=== PATIENT | male | born 1960 | race Caucasian/White ===

== ENCOUNTER 2018-02-22 06:21 | Day surgery (SDC) | payer BC ==
[~2018-02-22 06:21] MED LIST: Acetaminophen TAB* 325 MG PO PRN; Buffered Lidocaine 0.9% SYRIN* 5 ML/SYR SYRINGE INTRADERM ONE
[2018-02-22] MEDS ORDERED: Trypan Blue 0.06% SOL* 0.5 ML BTL ONE (07:22)
[2018-02-22] MEDS ORDERED: Midazolam* 1 MG/ML 5 ML VIAL (5 MG) ONE (09:08)
[2018-02-22] MEDS ORDERED: fentaNYL* 50 MCG/ML 2 ML VIAL (100 MCG VIAL) ONE (09:08)
[2018-02-22] MEDS ORDERED: Midazolam* 1 MG/ML 2 ML VIAL (2 MG) ONE (09:51)
[2018-02-22] MEDS ORDERED: Propofol* 10 MG/ML 20 ML BTL IV PUSH ONE (09:59)
[2018-02-22 10:42] VITALS: BP 123/89
[2018-02-22] MEDS ORDERED: Lidocaine 1%* 5 ML VIAL ONE (12:51)
[2018-02-22] MEDS ORDERED: Ketorolac 0.5% OPHTH (NF) 0.5 % 5 ML BTL ONE (12:51)
[2018-02-22] MEDS ORDERED: acetaZOLAMIDE TAB* 250 MG ONE (12:51)
[2018-02-22] MEDS ORDERED: Tetracaine 0.5% OPTH.SOL 4 ML* 1 DROP BTL ONE (12:51)
[2018-02-22] MEDS ORDERED: Tropicamide 1% OPTH.SOL* BTL ONE (12:51)
[2018-02-22] MEDS ORDERED: Povidone Iodine 5% OPTH* 30 ML BTL ONE (12:51)
[2018-02-22] MEDS ORDERED: Cyclopentolate 1% OPTH.SOL* 2 ML BTL ONE (12:51)
[2018-02-22] MEDS ORDERED: Phenylephrine 2.5% OPTH.SOL* 2 ML BTL ONE (12:51)
[2018-02-22] MEDS ORDERED: Neomycin/Polymy/Dex OPHTH.OIN* 3.5 GM ONE (12:51)
--- NOTE | 2018-02-22 15:52 | OP ---
DATE OF OPERATION: 02/22/18 - [facility] DATE OF : 62 SURGEON: Gustabo Carson MD ANESTHESIA: Monitored anesthesia care. PRE-OP DIAGNOSIS: Mature cataract, right eye. POST-OP DIAGNOSIS: Mature cataract, right eye with floppy iris syndrome. OPERATIVE PROCEDURE: Extracapsular cataract extraction of the right eye with intraocular lens implant. IMPLANTS: SN60WF 21.5 Diopter lens to the right eye. COMPLICATIONS: None. DESCRIPTION OF PROCEDURE: The patient was given phenylephrine 2.5% and cyclopentolate 1% eye drops to the operative eye in the preoperative area. The patient was taken to the operating room where a time-out was taken to identify the correct patient, site, and side of surgery. The patient's right eye was prepped and draped in the usual sterile fashion with 5% Betadine. A second time -out was taken to verify the correct patient, side, and site of surgery and correct lens implant. A lid speculum was placed to the right eye. A 1 mm paracentesis blade was used to make a clear corneal incision in the superior temporal position. Preservative-free 1% lidocaine was injected into the anterior chamber. Vision blue was then injected into the anterior chamber to stay in the anterior capsule due to the mature cataracts. Healon was then injected in the anterior chamber. A 2.75 mm keratome blade was used to make a triplanar incision at the inferior temporal position. A Malyugin ring was inserted due to poor pupillary dilation and evidence of floppy iris syndrome. A cystotome initiated a capsulorrhexis, which was completed with MST forceps in a continuous and curvilinear manner. Hydrodissection of the lens was performed with BSS on a cannula. The lens could be spun in the capsular bag. The phacoemulsification handpiece was used with a [id number] technique to remove the nucleus with 34.73 CDE. The I/A handpiece then removed the residual cortical lens material. DisCoVisc was injected to inflate the capsular bag. The planned SN60WF 21.5 Diopter lens was then injected into the capsular bag. The Malyugin ring was then removed from the anterior chamber using a [place] technique. The residual DisCoVisc was removed from the eye with the I/A handpiece. The corneal incisions were hydrated and no leaks occurred at physiologic pressure around 20 mmHg per palpation. The lid speculum was removed and drapes were removed. Maxitrol ointment was placed to the surface of the operative eye. An adhesive patch and shield was then placed on the operative eye. The patient was taken to the postoperative area in stable condition. [id number]/[facility] #: [id number] MTDD
== END 2018-02-22 10:50 | disposition home or self-care (01) ==
LOC: OREAST 06:21
PROVIDERS: ATTEND Student in an Organized Health Care Education/Training Program
DX: H25.11 Age-related nuclear cataract, right eye (principal); H21.81 Floppy iris syndrome; Z72.0 Tobacco use; R03.0 Elevated blood-pressure reading, without diagnosis of hypertension
CPT/HCPCS: A9270-GY; J2250; J2704; J3010; V2632

== ENCOUNTER 2018-11-05 21:36 | Emergency (ER) | payer BC ==
[2018-11-05] MEDS ORDERED: NS 0.9% 1000 ML** 1,000 ML IV ONE (22:18)
[2018-11-05] MEDS ORDERED: Morphine 4 MG/ML VIAL (1 ml) 4 MG/ML VIAL IV ONE (22:18)
[2018-11-05] MEDS ORDERED: Ondansetron INJ* 2 MG/ML VIAL IV ONE (22:18)
[2018-11-05 22:37] LABS: ABS Basophils 0.1 10^3/ul (0-0.2); ABS Eosinophils 0.2 10^3/ul (0-0.6); ABS Lymphocytes 1.5 10^3/ul (1.0-4.8); ABS Monocytes 0.8 10^3/ul (0-0.8); Hematocrit 45 % (42-52); Hemoglobin 15.3 g/dL (14.0-18.0); Lymphocyte % 14.1 %; Mean Corpuscular HGB Conc 34 g/dL (31-36); Mean Corpuscular Hemoglobin 34 pg (27-31); Mean Corpuscular Volume 100 fL (80-94); Platelet Count 208 10^3/uL (150-450); Red Blood Count 4.55 10^6 /uL (4.18-5.48); Red Cell Distribution Width 13 % (10.5-15); White Blood Count 10.6 10^3/uL (3.5-10.8)
--- NOTE | 2018-11-05 22:39 | ED ---
GI/ HPI - HPI Summary HPI Summary: 58 year old male presents with flank pain today. He states pain is starting to wrap around his abdomen. He states he's been having nausea and vomiting. Denies any diarrhea or constipation. he did vomit a couple hours ago and has been nauseous. No dysuria or hematuria. Never had this pain before. No previous abd surgeries. Has no medical conditions. He denies any chest pain shortness breath. He denies any pain into his legs. No numbness and tingling. No loss of bowel or bladder. No saddle anesthesias. No fevers. took some ibuprofen and helped with the pain. - History of Current Complaint Chief Complaint: EDFlankPain Time Seen by Provider: 11/05/18 22:08 Stated Complaint: PAIN IN RIGHT SIDE/VOMITING PER PT Pain Intensity: 7 - Allergy/Home Medications Allergies/Adverse Reactions: Allergies Allergy/AdvReac Type Severity Reaction Status Date / Time No Known Allergies Allergy Verified 05/03/18 09:53 PMH/Surg Hx/FS Hx/Imm Hx Endocrine/Hematology History: Denies: Hx Anticoagulant Therapy Cardiovascular History: Denies: Hx Myocardial Infarction Musculoskeletal History: Reports: Hx Tendonitis - 2015 RT [place], [place] NOW Sensory History: Reports: Hx Cataracts - RT EYE Opthamlomology History: Reports: Hx Cataracts - RT EYE - Surgical History Surgery Procedure, Year, and Place: 2010 ALL TEETH EXTRACTED IN DENTIST OFFICE Hx Anesthesia Reactions: No Infectious Disease History: No Infectious Disease History: Denies: Traveled Outside the [place] in Last 30 Days - Family History Known Family History: Positive: Non-Contributory - Social History Alcohol Use: Weekly Alcohol Amount: 24 BEERS /WEEK Substance Use Type: Reports: None Smoking Status (MU): Heavy Every Day Tobacco Smoker Type: Cigarettes Amount Used/How Often: 2 PPD 42 YRS Length of Time of Smoking/Using Tobacco: 42 YRS Have You Smoked in the Last Year: Yes Review of Systems Negative: Fever Negative: Chest Pain Negative: Shortness Of Breath Positive: Vomiting, Nausea. Negative: Abdominal Pain, Diarrhea Positive: flank pain. Negative: dysuria All Other Systems Reviewed And Are Negative: Yes Physical Exam Triage Information Reviewed: Yes Vital Signs On Initial Exam: Initial Vitals Temp Pulse Resp BP Pulse Ox 97.8 F 73 20 184/114 98 11/05/18 21:39 11/05/18 21:39 11/05/18 21:39 11/05/18 21:39 11/05/18 21:39 Vital Signs Reviewed: Yes Appearance: Positive: Well-Appearing Skin: Positive: Warm, Dry Head/Face: Positive: Normal Head/Face Inspection Eyes: Positive: Normal, Conjunctiva Clear ENT: Positive: Pharynx normal Respiratory/Lung Sounds: Positive: Clear to Auscultation, Breath Sounds Present Cardiovascular: Positive: Normal, RRR Abdomen Description: Positive: Nontender, Soft, CVA Tenderness (R) Bowel Sounds: Positive: Present Musculoskeletal: Positive: Normal Neurological: Positive: Normal Psychiatric: Positive: Normal Diagnostics - Vital Signs Vital Signs Temp Pulse Resp BP Pulse Ox 11/05/18 22:27 74 96 11/05/18 22:26 74 188/115 95 11/05/18 21:39 97.8 F 73 20 184/114 98 - Laboratory Lab Results: Lab Results 11/05/18 Range/Units 22:30 WBC 10.6 (3.5-10.8) 10^3/uL RBC 4.55 (4.18-5.48) 10^6 /uL Hgb 15.3 (14.0-18.0) g/dL Hct 45 (42-52) % MCV 100 H (80-94) fL MCH 34 H (27-31) pg MCHC 34 (31-36) g/dL RDW 13 (10.5-15) % Plt Count 208 (150-450) 10^3/uL MPV 8.0 (7.4-10.4) fL Neut % (Auto) 75.7 % Lymph % (Auto) 14.1 % [place] % (Auto) 7.7 % Eos % (Auto) 2.0 % Baso % (Auto) 0.5 % Absolute Neuts (auto) 8.0 H (1.5-7.7) 10^3/ul Absolute Lymphs (auto) 1.5 (1.0-4.8) 10^3/ul Absolute Monos (auto) 0.8 (0-0.8) 10^3/ul Absolute Eos (auto) 0.2 (0-0.6) 10^3/ul Absolute Basos (auto) 0.1 (0-0.2) 10^3/ul Absolute Nucleated RBC 0.0 10^3/ul Nucleated RBC % 0.0 Result Diagrams: 11/05/18 22:30 11/05/18 22:30 Lab Statement: Any lab studies that have been ordered have been reviewed, and results considered in the medical decision making process. Re-Evaluation - Re-Evaluation First Eval Re-Evaluation Time: 23:47 Change: Improved Comment: no pain Second Eval Re-Evaluation Time: 00:51 Change: Improved Comment: still no pain GIGU Course/Dx - Course Course Of Treatment: 58 year old male presents with flank pain today. He states pain is starting to wrap around his abdomen. He states he's been having nausea and vomiting. Denies any diarrhea or constipation. he did vomit a couple hours ago and has been nauseous. No dysuria or hematuria. Never had this pain before. No previous abd surgeries. Has no medical conditions. He denies any chest pain shortness breath. He denies any pain into his legs. No numbness and tingling. No loss of bowel or bladder. No saddle anesthesias. No fevers. took some ibuprofen and helped with the pain. On exam tenderness right flank. Nontender abdomen. wbc normal. crp normal. urine shows potential uti but likely a contaminant but will treat with augmentin. has no fever here. CT shows 3mm stone. patient has no pain. will discharge with flomax and pain medication. gave referral to urology. told if develop fever to return. patient understand and agrees with plan. - Diagnoses Differential Diagnoses - Male: Ureteral Calculi, Urinary Tract Infection, Other - back pain Provider Diagnoses: Ureteral stone, UTI (urinary tract infection) Discharge - Sign-Out/Discharge Documenting (check all that apply): Patient Departure Patient Received Moderate/Deep Sedation with Procedure: No - Discharge Plan Condition: Good Disposition: HOME Prescriptions: Amoxicillin/Clavulanate TAB* [Augmentin TAB 500 mg*] 500 mg PO BID #9 tab Ondansetron TAB* [Zofran 4 MG Tab*] 4 mg PO Q6H PRN #16 tab PRN Reason: Nausea oxyCODONE/Acetamin 5/325 MG* [Percocet 5/325 TAB*] 1 tab PO Q6H PRN #16 tab MDD 4 PRN Reason: Pain Tamsulosin CAP* [Flomax CAP*] 0.4 mg PO DAILY #7 cap Patient Education Materials: Ureteral Stones (ED) Referrals: Regan Sin MD [Primary Care Provider] - Manoj Hawk MD [Medical Doctor] - Additional Instructions: take augmentin twice a day for 5 days Take ibuprofen every 6 hours and percocet as needed every 6 hours Take Zofran every 6 hours for nausea as needed Take Flomax daily starting tomorrow, first dose given in ED until stone expelled , make sure stand up slowly Follow up with urology, call office for appointment Strain urine until collect stone Return to ED if unable to manage pain at home, develop fever, or any new or worsening symptoms - Billing Disposition and Condition Condition: GOOD Disposition: Home
[2018-11-05 22:52] LABS: Albumin 4.4 g/dL (3.2-5.2); Albumin/Globulin Ratio 1.7 (1-3); BUN/Creatinine Ratio 14.8 (8-20); C Reactive Protein 2.91 mg/L (<8.01); Calcium 9.8 mg/dL (8.6-10.3); EGFR African American 79.3 (>60); EGFR Non-African American 65.5 (>60); Globulin 2.6 g/dL (2-4); Potassium 3.9 mmol/L (3.5-5.0); Total Bilirubin 0.5 mg/dL (0.2-1.0)
[2018-11-06] MEDS ORDERED: Tamsulosin CAP* 0.4 MG PO ONE (00:11)
[2018-11-06 00:40] LABS: Urine Appearance Cloudy; Urine Bacteria Absent (Absent); Urine Bilirubin Negative (Negative); Urine Blood 3+ (Negative); Urine Color Yellow; Urine Glucose Negative (Negative); Urine Ketones Negative (Negative); Urine Nitrite Negative (Negative); Urine Protein Negative (Negative); Urine Red Blood Cell 3+(>10/hpf) (Absent); Urine Specific Gravity 1.023 (1.010-1.030); Urine Squamous Epithelial Cell Present (Absent); Urine Urobilinogen Negative (Negative); Urine White Blood Cell 1+(6-10/hpf) (Absent)
[2018-11-06] MEDS ORDERED: Amoxicillin/Clavulanate TAB* 500 MG PO ONE (00:42)
[2018-11-06] MEDS ORDERED: O ndansetron ODT 4MG 5TAB PRPK 4 MG PAK PO ONE (00:51)
[2018-11-06 01:04] VITALS: BP 139/79
== END 2018-11-06 00:51 | disposition home or self-care (01) ==
LOC: ED 21:36
DX: N39.0 Urinary tract infection, site not specified (principal); N20.1 Calculus of ureter; N20.0 Calculus of kidney; F17.210 Nicotine dependence, cigarettes, uncomplicated
CPT/HCPCS: 36415; 74176; 80053; 81003; 81015; 83605; 83690; 85025; 86140; 87086; 96361; 96374; 96375; 99283; J2270; J2405

== ENCOUNTER 2022-07-02 16:31 | Inpatient (IN) ==
[2022-07-02] MEDS ORDERED: Iodixanol (CONTRAST) 320 MG/ML 100 ML SDV IV ONE (17:32)
[2022-07-02 17:43] LABS: ABS Basophils 0.1 10^3/ul (0-0.2); ABS Lymphocytes 0.4 10^3/ul (1.0-4.8); ABS Monocytes 0.8 10^3/ul (0-0.8); ABS Neutrophils 2.8 10^3/ul (1.5-7.7); Eosinophil % 0.3 %; Hematocrit 35 % (42-52); Hemoglobin 11.4 g/dL (14.0-18.0); Lymphocyte % 10.5 %; Mean Corpuscular HGB Conc 33 g/dL (31-36); Mean Corpuscular Hemoglobin 33 pg (27-31); Mean Corpuscular Volume 99 fL (80-94); Mean Platelet Volume 7.2 fL (7.4-10.4); Platelet Count 199 10^3/uL (150-450); Red Blood Count 3.48 10^6 /uL (4.18-5.48); Red Cell Distribution Width 14 % (10-15); White Blood Count 4.2 10^3/uL (3.5-10.8)
[2022-07-02] MEDS ORDERED: fentaNYL 100 mcg/2 ml 50 MCG/ML VIAL IV SLOW PU ONE (17:58)
[2022-07-02 18:05] LABS: INR 1.19 (0.88-1.18)
[2022-07-02] MEDS ORDERED: methylPREDNISolone SOD SUCC 125 mg 2 ML VIAL IV ONE (18:33)
[2022-07-02] MEDS ORDERED: NS 0.9% 1000 ml BAG 1,000 ML IV ONE (18:33)
[2022-07-02] MEDS ORDERED: cefTRIAXone 1 gm/50 mL D5W 1 GM/50 ML BAG IV ONE (18:35)
[2022-07-02] MEDS ORDERED: Azithromycin 500 mg/250 ml NS 500 MG/250 ML BAG IVPB ONE (18:35)
[2022-07-02] MEDS ORDERED: Levalbuterol 1.25MG/0.5ML NEB.SOL INH ONE (18:35)
[2022-07-02 18:51] LABS: Albumin 3.5 g/dL (3.2-5.2); Albumin/Globulin Ratio 1.3 (1-3); Calcium 8.4 mg/dL (8.6-10.3); Globulin 2.7 g/dL (2-4); Magnesium 1.6 mg/dL (1.9-2.7); Potassium 4.3 mmol/L (3.5-5.0); Total Bilirubin 0.6 mg/dL (0.2-1.0); Total Protein 6.2 g/dL (6.4-8.9); eGFR CKD-EPI 106.2 (>60)
[2022-07-02] MEDS ORDERED: Magnesium Sulfate 2 gm BAG 2 GM/50 ML BAG IVPB ONE (19:12)
[2022-07-02 19:24] LABS: High Sensitivity Troponin 1 Hr 6 pg/mL (<20)
[2022-07-02 19:43] LABS: C Reactive Protein 222.65 mg/L (<8.01)
[2022-07-02 19:45] LABS: Venous Bicarbonate HCO3 23.9 mmol/L (24-28)
[2022-07-02] MEDS ORDERED: Magnesium Sulf 4 GM/100 ML IV 4,000 MG/100 ML BAG IVPB ONE (20:00)
[2022-07-02] MEDS ORDERED: CALCIUM GLUCONATE 1GM/50ML NS 1 GM/50 ML BAG IV ONE (20:01)
[2022-07-02] MEDS ORDERED: Levalbuterol 1.25MG/0.5ML NEB.SOL INH PRN (20:07)
[2022-07-02] MEDS: Acetaminophen IV 1 GM/100ML 1,000 MG/100 ML BAG IV SCH (20:51)
[2022-07-02] MEDS ORDERED: Ondansetron 4 mg VIAL 2 MG/ML 2 ml VIAL IV PRN ×2 (20:56→21:35)
[2022-07-02] MEDS ORDERED: Varenicline 1 mg TAB (NF) PO SCH (21:00)
[2022-07-02 21:30] LABS: Urine Appearance Clear; Urine Bilirubin Negative (Negative); Urine Blood 2+ (Negative); Urine Color Yellow; Urine Glucose Negative (Negative); Urine Ketones Trace (Negative); Urine Nitrite Negative (Negative); Urine Protein 1+(30 mg/dL) (Negative); Urine Urobilinogen Negative (Negative)
[2022-07-02 21:45] LABS: Urine Bacteria Absent (Absent); Urine Red Blood Cell Trace(0-2/hpf) (Absent); Urine Squamous Epithelial Cell Present (Absent); Urine White Blood Cell Trace(0-5/hpf) (Absent)
[2022-07-02] MEDS: metroNIDAZOLE IV 500 MG/100ML 500 MG/100 ML BAG IVPB SCH (21:45)
[2022-07-02] MEDS ORDERED: NS 0.9% 1000 ml BAG 1,000 ML IV SCH (21:45)
[2022-07-02] MEDS: Albuterol/Ipratropium NEB.SOL (2.5/0.5 MG) 3 ML NEB.SOLN INH SCH (22:33)
[2022-07-02] MEDS: methylPREDNISolone SOD SUCC 40 mg/ml 1 ml VIAL IV SCH (22:59)
[2022-07-02] MEDS: Enoxaparin 40 MG/0.4 ML SYR SUBCUT SCH (23:00)
[2022-07-03] MEDS: Acetaminophen IV 1 GM/100ML 1,000 MG/100 ML BAG IV SCH ×4 (02:20→20:51)
[2022-07-03] MEDS: metroNIDAZOLE IV 500 MG/100ML 500 MG/100 ML BAG IVPB SCH (03:57)
[2022-07-03 04:16] LABS: ABS Lymphocytes 0.3 10^3/ul (1.0-4.8); ABS Monocytes 0.2 10^3/ul (0-0.8); ABS Neutrophils 2.5 10^3/ul (1.5-7.7); Eosinophil % 0.1 %; Hematocrit 32 % (42-52); Hemoglobin 10.9 g/dL (14.0-18.0); Lymphocyte % 9.4 %; Mean Corpuscular HGB Conc 34 g/dL (31-36); Mean Corpuscular Hemoglobin 34 pg (27-31); Mean Corpuscular Volume 99 fL (80-94); Mean Platelet Volume 7.2 fL (7.4-10.4); Platelet Count 201 10^3/uL (150-450); Red Blood Count 3.23 10^6 /uL (4.18-5.48); Red Cell Distribution Width 15 % (10-15); White Blood Count 2.9 10^3/uL (3.5-10.8)
[2022-07-03 04:49] LABS: Calcium 8.4 mg/dL (8.6-10.3); Magnesium 2.4 mg/dL (1.9-2.7); Potassium 4.5 mmol/L (3.5-5.0); eGFR CKD-EPI 107.7 (>60)
[2022-07-03] MEDS: methylPREDNISolone SOD SUCC 40 mg/ml 1 ml VIAL IV SCH ×3 (05:13→21:30)
[2022-07-03] MEDS: Albuterol/Ipratropium NEB.SOL (2.5/0.5 MG) 3 ML NEB.SOLN INH SCH (07:06)
[2022-07-03] MEDS ORDERED: Albuterol/Ipratropium NEB.SOL (2.5/0.5 MG) 3 ML NEB.SOLN INH PRN (07:16)
[2022-07-03] MEDS: Albuterol HFA INHALER 8 gm MDI INH SCH ×3 (07:23→19:43)
[2022-07-03] MEDS ORDERED: Piperacillin/Tazobac ADVAN 3.375 GM in NS 0.9% 100 ml BAG 100 ML IV ONE (18:30)
[2022-07-03] MEDS ORDERED: Zosyn per Pharmacy NOTE FOLLOW UP SCH (20:00)
[2022-07-03] MEDS ORDERED: Azithromycin 500 mg/250 ml NS 500 MG/250 ML BAG IVPB SCH (21:00)
[2022-07-03] MEDS: Enoxaparin 40 MG/0.4 ML SYR SUBCUT SCH (21:30)
[2022-07-03] MEDS: ZOSYN 3.375 GM Q8H per EXTENDED INFUSION IV SCH (23:03)
[2022-07-04] MEDS: Albuterol HFA INHALER 8 gm MDI INH SCH ×3 (01:58→12:03)
[2022-07-04] MEDS: Acetaminophen IV 1 GM/100ML 1,000 MG/100 ML BAG IV SCH ×2 (02:42→08:24)
[2022-07-04] MEDS: ZOSYN 3.375 GM Q8H per EXTENDED INFUSION IV SCH (06:08)
[2022-07-04] MEDS: methylPREDNISolone SOD SUCC 40 mg/ml 1 ml VIAL IV SCH ×2 (06:08→12:25)
[2022-07-04 06:34] LABS: ABS Lymphocytes 0.7 10^3/ul (1.0-4.8); ABS Monocytes 0.6 10^3/ul (0-0.8); ABS Neutrophils 3.7 10^3/ul (1.5-7.7); Eosinophil % 0.1 %; Hematocrit 32 % (42-52); Hemoglobin 11.2 g/dL (14.0-18.0); Lymphocyte % 13.2 %; Mean Corpuscular HGB Conc 35 g/dL (31-36); Mean Corpuscular Hemoglobin 35 pg (27-31); Mean Corpuscular Volume 101 fL (80-94); Mean Platelet Volume 7.4 fL (7.4-10.4); Nucleated Red Blood Cells % 0.1; Platelet Count 277 10^3/uL (150-450); Red Blood Count 3.22 10^6 /uL (4.18-5.48); Red Cell Distribution Width 15 % (10-15); White Blood Count 4.9 10^3/uL (3.5-10.8)
[2022-07-04 07:22] LABS: Calcium 8.5 mg/dL (8.6-10.3); Potassium 4.6 mmol/L (3.5-5.0); eGFR CKD-EPI 106.7 (>60)
[2022-07-04 11:36] VITALS: BP 165/100
== END 2022-07-04 13:55 | disposition home or self-care (01) | DRG 139 ==
LOC: ED 16:31 → SUATTDRO 21:32 → EDHOLD 21:32 → MED 23:05
PROVIDERS: ADMIT Internal Medicine; ATTEND Internal Medicine

== ENCOUNTER 2022-07-21 19:56 | Inpatient (IN) ==
[2022-07-21 21:03] LABS: ABS Monocytes 0.1 10^3/ul (0-0.8); ABS Neutrophils 6.2 10^3/ul (1.5-7.7); Eosinophil % 0.3 %; Hematocrit 35 % (42-52); Hemoglobin 11.6 g/dL (14.0-18.0); Lymphocyte % 13.7 %; Mean Corpuscular HGB Conc 33 g/dL (31-36); Mean Corpuscular Hemoglobin 33 pg (27-31); Mean Corpuscular Volume 100 fL (80-94); Platelet Count 167 10^3/uL (150-450); Red Blood Count 3.54 10^6 /uL (4.18-5.48); Red Cell Distribution Width 16 % (10-15); White Blood Count 7.3 10^3/uL (3.5-10.8)
[2022-07-21 21:12] LABS: INR 0.95 (0.88-1.18)
[2022-07-21 21:33] LABS: Albumin 3.7 g/dL (3.2-5.2); Albumin/Globulin Ratio 1.7 (1-3); Calcium 8.7 mg/dL (8.6-10.3); Creatinine, Serum 0.84 mg/dL (0.67-1.17); Globulin 2.2 g/dL (2-4); Potassium 3.7 mmol/L (3.5-5.0); Total Bilirubin 0.5 mg/dL (0.2-1.0); Total Protein 5.9 g/dL (6.4-8.9); eGFR CKD-EPI 99.2 (>60)
[2022-07-21 22:03] LABS: High Sensitivity Troponin 1 Hr 10 pg/mL (<20)
[2022-07-21 22:32] LABS: TSH Ultra Thyroid Stim Horm 0.43 mcIU/mL (0.34-5.60)
[2022-07-21] MEDS ORDERED: Iohexol 350 (CONTRAST) 500 ML MDV IV ONE (22:56)
[2022-07-22] MEDS ORDERED: Propofol 10 MG/ML 20 ML BTL IV PUSH ONE (00:50)
[2022-07-22] MEDS ORDERED: Digoxin IV 0.5 MG/2 ML AMP (0.25 MG/ML) IV SLOW PU ONE (01:57)
[2022-07-22] MEDS ORDERED: Metoprolol Tartrate 5 mg VIAL 5 ml VIAL (1 mg/ml) IV ONE ×3 (02:00→11:05)
[2022-07-22] MEDS ORDERED: Thiamine 100 MG/ML 2 ml VIAL (200 mg) IM ONE (03:45)
[2022-07-22 06:37] LABS: ABS Lymphocytes 0.8 10^3/ul (1.0-4.8); ABS Monocytes 0.1 10^3/ul (0-0.8); ABS Neutrophils 7.1 10^3/ul (1.5-7.7); Eosinophil % 0.4 %; Hematocrit 35 % (42-52); Hemoglobin 11.7 g/dL (14.0-18.0); Mean Corpuscular HGB Conc 33 g/dL (31-36); Mean Corpuscular Hemoglobin 33 pg (27-31); Mean Corpuscular Volume 101 fL (80-94); Mean Platelet Volume 7.9 fL (7.4-10.4); Platelet Count 152 10^3/uL (150-450); Red Blood Count 3.51 10^6 /uL (4.18-5.48); Red Cell Distribution Width 17 % (10-15)
[2022-07-22 06:58] LABS: Calcium 8.8 mg/dL (8.6-10.3); Creatinine, Serum 0.76 mg/dL (0.67-1.17); Magnesium 2.1 mg/dL (1.9-2.7); eGFR CKD-EPI 102.3 (>60)
[2022-07-22] MEDS: Multivitamins/Minerals TAB PO SCH (08:19)
[2022-07-22] MEDS ORDERED: Metoprolol Tartrate 5 mg VIAL 5 ml VIAL (1 mg/ml) IV PRN ×2 (17:00)
[2022-07-23 08:57] LABS: HDL Cholesterol 107.8 mg/dL
[2022-07-23] MEDS ORDERED: Digoxin IV 0.5 MG/2 ML AMP (0.25 MG/ML) IV SLOW PU ONE ×2 (09:13→13:25)
[2022-07-23] MEDS ORDERED: Furosemide 20 mg/2 ml IV VIAL IV ONE (09:17)
[2022-07-23] MEDS: Multivitamins/Minerals TAB PO SCH (09:51)
[2022-07-23 10:27] LABS: C Reactive Protein 15.63 mg/L (<8.01)
[2022-07-23 10:32] LABS: CKMB ng/mL 1.9 ng/mL (0.6-6.3)
[2022-07-24 05:41] LABS: ABS Lymphocytes 1.2 10^3/ul (1.0-4.8); ABS Monocytes 0.1 10^3/ul (0-0.8); ABS Neutrophils 4.8 10^3/ul (1.5-7.7); Eosinophil % 0.7 %; Hematocrit 35 % (42-52); Hemoglobin 11.5 g/dL (14.0-18.0); Mean Corpuscular HGB Conc 33 g/dL (31-36); Mean Corpuscular Hemoglobin 33 pg (27-31); Mean Corpuscular Volume 99 fL (80-94); Mean Platelet Volume 8.2 fL (7.4-10.4); Platelet Count 133 10^3/uL (150-450); Red Blood Count 3.53 10^6 /uL (4.18-5.48); Red Cell Distribution Width 16 % (10-15); White Blood Count 6.2 10^3/uL (3.5-10.8)
[2022-07-24 06:20] LABS: Calcium 8.4 mg/dL (8.6-10.3); Creatinine, Serum 0.77 mg/dL (0.67-1.17); Magnesium 1.8 mg/dL (1.9-2.7); Potassium 3.8 mmol/L (3.5-5.0); eGFR CKD-EPI 101.9 (>60)
[2022-07-24] MEDS ORDERED: Magnesium Sulfate 2 gm BAG 2 GM/50 ML BAG IVPB ONE (07:27)
[2022-07-24] MEDS: Multivitamins/Minerals TAB PO SCH (10:09)
[2022-07-25 05:55] LABS: ABS Eosinophils 0.1 10^3/ul (0-0.6); ABS Lymphocytes 1.4 10^3/ul (1.0-4.8); ABS Monocytes 0.2 10^3/ul (0-0.8); ABS Neutrophils 4.8 10^3/ul (1.5-7.7); Hematocrit 36 % (42-52); Hemoglobin 11.8 g/dL (14.0-18.0); Lymphocyte % 21.9 %; Mean Corpuscular HGB Conc 33 g/dL (31-36); Mean Corpuscular Hemoglobin 33 pg (27-31); Mean Corpuscular Volume 100 fL (80-94); Platelet Count 125 10^3/uL (150-450); Red Blood Count 3.56 10^6 /uL (4.18-5.48); Red Cell Distribution Width 16 % (10-15); White Blood Count 6.5 10^3/uL (3.5-10.8)
[2022-07-25 06:16] LABS: Calcium 8.6 mg/dL (8.6-10.3); Creatinine, Serum 0.71 mg/dL (0.67-1.17); Magnesium 1.9 mg/dL (1.9-2.7); Potassium 4.1 mmol/L (3.5-5.0); eGFR CKD-EPI 104.4 (>60)
[2022-07-25] MEDS ORDERED: Aminophylline 25 MG/ML VIAL ONE (07:24)
[2022-07-25] MEDS ORDERED: Regadenoson 0.4 MG/5 ML SYRINGE ONE (07:24)
[2022-07-25] MEDS ORDERED: Digoxin IV 0.5 MG/2 ML AMP (0.25 MG/ML) IV SLOW PU ONE ×2 (11:08→14:49)
[2022-07-25] MEDS: Multivitamins/Minerals TAB PO SCH (11:49)
[2022-07-25] MEDS ORDERED: Magnesium Sulfate IV 1GM/100ML 1 GM/100 ML BAG IV ONE (15:00)
[2022-07-25 16:00] VITALS: BP 125/78
== END 2022-07-25 18:15 | disposition home or self-care (01) | DRG 201 ==
LOC: ED 19:56 → EDHOLD 19:56 → SUATTDRO 07-22 02:30 → MEDTELE 07-22 11:05
PROVIDERS: ADMIT Hospitalist; ATTEND Internal Medicine

== ENCOUNTER 2022-08-25 17:57 | Observation (INO) ==
[2022-08-25] MEDS ORDERED: Lactated Ringers 1000 ml BAG 1,000 ML IV ONE (19:11)
[2022-08-25 19:34] LABS: ABS Lymphocytes 0.6 10^3/ul (1.0-4.8); ABS Monocytes 1.4 10^3/ul (0-0.8); ABS Neutrophils 12.8 10^3/ul (1.5-7.7); Eosinophil % 0.1 %; Hematocrit 42 % (42-52); Hemoglobin 13.5 g/dL (14.0-18.0); Lymphocyte % 4.2 %; Mean Corpuscular HGB Conc 33 g/dL (31-36); Mean Corpuscular Hemoglobin 33 pg (27-31); Mean Corpuscular Volume 101 fL (80-94); Mean Platelet Volume 7.9 fL (7.4-10.4); Platelet Count 213 10^3/uL (150-450); Red Blood Count 4.15 10^6 /uL (4.18-5.48); Red Cell Distribution Width 17 % (10-15); White Blood Count 14.8 10^3/uL (3.5-10.8)
[2022-08-25 19:46] LABS: INR 1.33 (0.88-1.18)
[2022-08-25] MEDS ORDERED: Al Hydrox/Mg Hydrox/Simet LIQ 30 ML UDC PO ONE (19:46)
[2022-08-25 21:09] LABS: ALT 96 U/L (7-52); AST 44 U/L (13-39); Albumin 3.8 g/dL (3.2-5.2); Albumin/Globulin Ratio 1.6 (1-3); Alkaline Phosphatase 129 U/L (35-149); Anion Gap 11 mmol/L (2-11); Blood Urea Nitrogen 26 mg/dL (6-24); CO2 Carbon Dioxide 29 mmol/L (22-32); Calcium 9.3 mg/dL (8.6-10.3); Chloride 97 mmol/L (101-111); Creatinine, Serum 0.75 mg/dL (0.67-1.17); Digoxin < 0.3 ng/ml (0.8-2.0); Globulin 2.4 g/dL (2-4); Glucose 160 mg/dL (70-100); Potassium 3.1 mmol/L (3.5-5.0); Sodium 137 mmol/L (135-145); Total Protein 6.2 g/dL (6.4-8.9); eGFR CKD-EPI 102.7 (>60)
[2022-08-25] MEDS ORDERED: Metoprolol Tartrate 5 mg VIAL 5 ml VIAL (1 mg/ml) IV ONE (22:19)
[2022-08-25] MEDS ORDERED: Potassium Chlor 20 meq TAB.ER PO ONE (22:53)
[2022-08-26 00:38] LABS: High Sensitivity Troponin 1 Hr 48 pg/mL (<20)
[2022-08-26] MEDS: Metoprolol Tartrate 5 mg VIAL 5 ml VIAL (1 mg/ml) IV PRN ×2 (00:51→09:07)
[2022-08-26 02:56] LABS: Urine Appearance Cloudy; Urine Bilirubin Negative (Negative); Urine Blood 2+ (Negative); Urine Color Yellow; Urine Glucose Negative (Negative); Urine Ketones Negative (Negative); Urine Nitrite Negative (Negative); Urine Protein Negative (Negative); Urine Specific Gravity 1.017 (1.002-1.030); Urine Urobilinogen Negative (Negative)
[2022-08-26] MEDS ORDERED: Potassium Chlor 20 meq TAB.ER PO ONE (03:00)
[2022-08-26 03:38] LABS: Urine Bacteria Absent (Absent); Urine Red Blood Cell 3+(>10/hpf) (Absent); Urine White Blood Cell 1+(6-10/hpf) (Absent)
[2022-08-26 06:06] LABS: ABS Lymphocytes 0.6 10^3/ul (1.0-4.8); ABS Neutrophils 10.5 10^3/ul (1.5-7.7); Eosinophil % 0.1 %; Hematocrit 40 % (42-52); Hemoglobin 13.5 g/dL (14.0-18.0); Lymphocyte % 5.3 %; Mean Corpuscular HGB Conc 34 g/dL (31-36); Mean Corpuscular Hemoglobin 34 pg (27-31); Mean Corpuscular Volume 100 fL (80-94); Mean Platelet Volume 7.7 fL (7.4-10.4); Platelet Count 192 10^3/uL (150-450); Red Blood Count 3.98 10^6 /uL (4.18-5.48); Red Cell Distribution Width 17 % (10-15); White Blood Count 12.2 10^3/uL (3.5-10.8)
[2022-08-26 06:28] LABS: Creatinine, Serum 0.66 mg/dL (0.67-1.17); HDL Cholesterol 58.3 mg/dL; Magnesium 1.9 mg/dL (1.9-2.7); Potassium 3.8 mmol/L (3.5-5.0); eGFR CKD-EPI 106.7 (>60)
[2022-08-26] MEDS ORDERED: NS 0.9% 1000 ml BAG 1,000 ML IV ONE (07:00)
[2022-08-26] MEDS ORDERED: Pneumococcal Vac 23-Polyvalent IM ONE (09:00)
[2022-08-26] MEDS ORDERED: Naloxone 0.4 mg VIAL 0.4 mg/ml 1 ml VIAL ONE (15:20)
[2022-08-26] MEDS ORDERED: Flumazenil 0.5 mg/5 ml 0.1 MG/ML 5 ml VIAL ONE (15:20)
[2022-08-26] MEDS ORDERED: fentaNYL 100 mcg/2 ml 50 MCG/ML VIAL ONE (15:20)
[2022-08-26] MEDS ORDERED: Midazolam 5 mg/5 ml VIAL 1 mg/ml 5 ml VIAL (5 mg) ONE (15:20)
[2022-08-26] MEDS ORDERED: fentaNYL 100 mcg/2 ml 50 MCG/ML VIAL IV SLOW PU ONE (15:27)
[2022-08-26] MEDS ORDERED: Midazolam 10 mg/10 ml VIAL 1 mg/ml 10 ml VIAL (10 mg) IV SLOW PU ONE (15:27)
[2022-08-26 16:14] VITALS: BP 149/104
== END 2022-08-26 17:36 | disposition home or self-care (01) ==
LOC: ED 17:57 → INTOOBSV 22:56 → EDHOLD 22:56 → SUATTDRO 22:56 → MEDTELE 08-26 02:00
PROVIDERS: ADMIT Student in an Organized Health Care Education/Training Program; ATTEND Internal Medicine
PROC: CARDVER (ICD-10-PCS; 2022-08-26 15:20)